=== PATIENT | male | born 1985 | race Caucasian/White ===

== ENCOUNTER 2018-07-20 12:21 | Emergency (ER) | payer OTHER ==
--- NOTE | 2018-07-20 12:52 | EDM.PDOC ---
ED HPI GENERAL MEDICAL PROBLEM - General Chief Complaint: Cardiovascular Problem Stated Complaint: HEART RACING WITH WALKING Time Seen by Provider: 07/20/18 12:45 Source of Information: Reports: Patient History Limitations: Reports: No Limitations - History of Present Illness INITIAL COMMENTS - FREE TEXT/NARRATIVE: This 32 yo male patient reports to the ED due to feeling like his heart was racing this morning while he was walking around the house. The patient reports he has not noticed any symptoms prior to today. The patient reports he has been under increased stress due to him breaking up with his girlfriend and trying to sell the house. The patient also reports he had a filling fall out of his right upper tooth about 1 year ago, but the patient has not had any problems with this other than intermittent pain when chewing something hard. Onset: Today Duration: Constant Location: Reports: Chest Quality: Reports: Other Severity: Moderate Improves with: Reports: Rest Worsens with: Reports: Movement Context: Reports: Other Associated Symptoms: Reports: No Other Symptoms - Related Data Allergies Allergy/AdvReac Type Severity Reaction Status Date / Time No Known Allergies Allergy Verified 07/20/18 12:27 Home Meds: Home Meds . [No Known Home Meds] 07/20/18 [History] Past Medical History - Infectious Disease History Infectious Disease History: Reports: Chicken Pox - Past Surgical History GI Surgical History: Reports: Hernia Repair/Other Social & Family History - Tobacco Use Smoking Status *Q: Never Smoker Second Hand Smoke Exposure: No - Recreational Drug Use Recreational Drug Use: No ED ROS GENERAL - Review of Systems Review Of Systems: ROS reveals no pertinent complaints other than HPI. ED EXAM, GENERAL - Physical Exam Exam: See Below Exam Limited By: No Limitations General Appearance: Alert, WD/WN, Mild Distress Eye Exam: Bilateral Eye: EOMI, Normal Inspection, PERRL Ears: Normal External Exam, Normal Canal, Hearing Grossly Normal, Normal TMs Nose: Normal Inspection, Normal Mucosa, No Blood Throat/Mouth: Normal Inspection, Normal Lips, Normal Teeth, Normal Gums, Normal Oropharynx, Normal Voice, No Airway Compromise Head: Atraumatic, Normocephalic Neck: Normal Inspection, Supple, Non-Tender, Full Range of Motion Respiratory/Chest: No Respiratory Distress, Lungs Clear, Normal Breath Sounds, No Accessory Muscle Use, Chest Non-Tender Cardiovascular: No Edema, No Gallop, No JVD, No Murmur, No Rub, Irregularly Irregular GI/Abdominal: Normal Bowel Sounds, Soft, Non-Tender, No Organomegaly, No Distention, No Abnormal Bruit, No Mass (Male) Exam: Deferred Rectal (Males) Exam: Deferred Back Exam: Normal Inspection, Full Range of Motion, NT Extremities: Normal Inspection, Normal Range of Motion, Non-Tender, Normal Capillary Refill, No Pedal Edema Neurological: Alert, Oriented, CN II-XII Intact, Normal Cognition, Normal Gait, Normal Reflexes, No Motor/Sensory Deficits Psychiatric: Normal Affect, Normal Mood Skin Exam: Warm, Dry, Intact, Normal Color, No Rash Lymphatic: No Adenopathy Course - Vital Signs Last Recorded V/S: Last Vital Signs Temp 36.3 C 07/20/18 12:23 Pulse 83 07/20/18 12:23 Resp 21 H 07/20/18 12:23 BP 152/126 H 07/20/18 12:23 Pulse Ox 100 07/20/18 12:23 - Orders/Labs/Meds Orders: Active Orders 24 hr Category Date Time Status EKG Documentation Completion [RC] URGENT Care 07/20/18 12:30 Ordered Labs: Laboratory Tests 07/20/18 07/20/18 Range/Units 12:38 12:38 WBC 8.0 (5.0-10.0) 10^3/uL RBC 5.85 (4.6-6.2) 10^6/uL Hgb 17.0 (14.0-18.0) g/dL Hct 48.5 (40.0-54.0) % MCV 82.9 (80-100) fL MCH 29.1 (27.0-34.0) pg MCHC 35.1 H (33.0-35.0) g/dL Plt Count 217 (150-450) 10^3/uL Neut % (Auto) 69.0 (42.2-75.2) % Lymph % (Auto) 20.4 L (20.5-50.1) % [place] % (Auto) 8.9 H (2-8) % Eos % (Auto) 1.5 (1.0-3.0) % Baso % (Auto) 0.2 (0.0-1.0) % Sodium 136 (135-145) mmol/L Potassium 3.9 (3.6-5.0) mmol/L Chloride 100 L (101-111) mmol/L Carbon Dioxide 24.0 (21.0-31.0) mmol/L Anion Gap 15.9 BUN 13 (7-18) mg/dL Creatinine 1.0 (0.6-1.3) mg/dL Est Cr Clr Drug Dosing TNP Estimated GFR (MDRD) > 60 BUN/Creatinine Ratio 13.00 Glucose 98 (74-105) mg/dL Calcium 10.2 (8.4-10.2) mg/dl Total Bilirubin 1.0 (0.2-1.0) mg/dL AST 23 (10-42) IU/L ALT 38 (10-60) IU/L Alkaline Phosphatase 70 (42-121) IU/L Troponin I 0.04 H* (0.00-0.02) ng/ml Total Protein 8.0 (6.7-8.2) g/dl Albumin 4.7 (3.2-5.5) g/dl Globulin 3.3 Albumin/Globulin Ratio 1.42 Meds: Medications Discontinued Medications Generic Name Dose Route Start Last Admin Trade Name Freq PRN Reason Stop Dose Admin Aspirin 324 mg 07/20/18 13:15 07/20/18 13:20 Aspirin PO 07/20/18 13:16 324 mg ONETIME ONE Administration Departure - Departure Time of Disposition: 13:24 Disposition: DC/Tfer to Acute Hospital 02 Reason for Transfer *Q: Other Condition: Fair Clinical Impression: New onset a-fib, Elevated troponin I level Forms: Interfacility Transfer EMTALA Care Plan Goals: Discussed the patient's history, examination, lab and EKG with Dr. Peñaloza. Dr. Peñaloza accepted the patient for continued evaluation and further management at [facility] in [place]. The patient will be transported by [facility]. - My Orders Last 24 Hours: My Active Orders 07/20/18 12:30 EKG Documentation Completion [RC] URGENT - Assessment/Plan Last 24 Hours: My Active Orders 07/20/18 12:30 EKG Documentation Completion [RC] URGENT
[2018-07-20 13:06] LABS: ANION GAP 15.9; CHLORIDE,CL 100 mmol/L (101-111); SODIUM,NA 136 mmol/L (135-145)
[2018-07-20] MEDS ORDERED: Aspirin 81 MG Tab.Chew PO ONE (13:15)
== END 2018-07-20 14:00 ==
LOC: DL.ED 12:21
DX: I48.91 Unspecified atrial fibrillation (principal); R79.89 Other specified abnormal findings of blood chemistry
CPT/HCPCS: 36415; 80053; 84484; 85025; 93005; 99285; A9270

== ENCOUNTER 2019-12-20 12:02 | Emergency (ER) | payer BC, OTHER ==
[2019-12-20] MEDS ORDERED: Sodium Chloride 0.9% 10 ML Syringe FLUSH PRN (12:16)
--- NOTE | 2019-12-20 12:16 | EDM.PDOC ---
ED HPI GENERAL MEDICAL PROBLEM - General Chief Complaint: Chest Pain Stated Complaint: ER Time Seen by Provider: 12/20/19 12:16 Source of Information: Reports: Patient, Old Records, Provider (Clif Serra NP), RN, RN Notes Reviewed History Limitations: Reports: No Limitations - History of Present Illness INITIAL COMMENTS - FREE TEXT/NARRATIVE: Pt sent from clinic by Clif Serra NP with report of recurrent chest pain/pressure x1 week associated with shortness of breath. Pt was found in clinic today to have no acute EKG changes, but had an equivocal Troponin of 0.08 (0.0-0.07 ref. range). Pt currently pain and symptom free. He has Hx of paroxysmal A-fib and cardiomyopathy followed by Dr. Paz. Pt takes Metoprolol 25mg BID, and Eliquis 5mg BID. Pt states the pain comes and goes randomly, and is not necessarily exertional. 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, Other Medication(s) - Related Data Allergies Allergy/AdvReac Type Severity Reaction Status Date / Time No Known Allergies Allergy Verified 12/20/19 12:43 Home Meds: Home Meds Apixaban [Eliquis] 5 mg PO BID 12/20/19 [History] Metoprolol Tartrate 25 mg PO BID 12/20/19 [History] Past Medical History Cardiovascular History: Reports: Afib, Cardiomyopathy Endocrine/Metabolic History: Reports: Obesity/BMI 30+ - Infectious Disease History Infectious Disease History: Reports: Chicken Pox - Past Surgical History GI Surgical History: Reports: Hernia Repair/Other Social & Family History - Family History Family Medical History: Noncontributory - Tobacco Use Smoking Status *Q: Never Smoker - Alcohol Use Alcohol Use History: Yes Alcohol Use Frequency: Socially - Recreational Drug Use Recreational Drug Use: No - Living Situation & Occupation Living situation: Reports: with Family Occupation: Employed ED ROS GENERAL - Review of Systems Review Of Systems: Comprehensive ROS is negative, except as noted in HPI. ED EXAM, GENERAL - Physical Exam Exam: See Below Exam Limited By: No Limitations General Appearance: Alert, WD/WN, No Apparent Distress Nose: Normal Inspection Throat/Mouth: Normal Inspection Head: Atraumatic, Normocephalic Neck: Normal Inspection Respiratory/Chest: No Respiratory Distress, Lungs Clear, Normal Breath Sounds, No Accessory Muscle Use, Chest Non-Tender Cardiovascular: Normal Peripheral Pulses, Regular Rate, Rhythm, No Edema, No JVD GI/Abdominal: Normal Bowel Sounds, Soft, Non-Tender Back Exam: Normal Inspection Extremities: Normal Inspection, Normal Range of Motion, Non-Tender, Normal Capillary Refill, No Pedal Edema Neurological: Alert, Oriented, CN II-XII Intact, Normal Cognition, Normal Gait, No Motor/Sensory Deficits Psychiatric: Normal Affect, Normal Mood Skin Exam: Warm, Dry, Intact, Normal Color, No Rash EKG INTERPRETATION EKG Date: 12/20/19 Time: 12:07 Rhythm: Other (SR) Rate (Beats/Min): 68 Boyce: LAD-Left Boyce Deviation P-Wave: Present QRS: Other (LVH, PVCs) ST-T: Depressed (lateral T wave inversion) QT: Normal Comparison: NA - No Prior EKG EKG Interpretation Comments: 1601HR EKG: SR, Rate 79, PVCs, unchanged from prior. Course - Vital Signs Last Recorded V/S: Last Vital Signs Temp 98.2 F 12/20/19 12:06 Pulse 63 12/20/19 12:06 Resp 20 12/20/19 12:06 BP 122/71 12/20/19 12:06 Pulse Ox 99 12/20/19 12:06 - Orders/Labs/Meds Orders: Active Orders 24 hr Category Date Time Status EKG 12 Lead [EKG Documentation Completion] [RC] STAT Care 12/20/19 12:17 Active EKG Documentation Completion [RC] ROUTINE Care 12/20/19 16:00 Active Peripheral IV Care [RC] . DIRECTED Care 12/20/19 12:17 Active Sodium Chloride 0.9% [Saline Flush] Med 12/20/19 12:16 Active 10 ml FLUSH ASDIRECTED PRN Peripheral IV Insertion Adult [OM.PC] Stat Oth 12/20/19 12:17 Ordered Medication Orders Sodium Chloride (Saline Flush) 10 ml FLUSH ASDIRECTED PRN PRN Reason: Keep Vein Open Last Admin: 12/20/19 12:24 Dose: 10 ml Documented by: MATTHEW Labs: Laboratory Tests 06/30/20 06/30/20 06/30/20 Range/Units 12:24 12:24 12:24 WBC 6.3 (5.0-10.0) 10^3/uL RBC 5.21 (4.6-6.2) 10^6/uL Hgb 15.2 D (14.0-18.0) g/dL Hct 43.8 (40.0-54.0) % MCV 84.1 (80-100) fL MCH 29.2 (27.0-34.0) pg MCHC 34.7 (33.0-35.0) g/dL Plt Count 180 (150-450) 10^3/uL Neut % (Auto) 70.1 (42.2-75.2) % Lymph % (Auto) 18.3 L (20.5-50.1) % [place] % (Auto) 8.6 H (2-8) % Eos % (Auto) 2.7 (1.0-3.0) % Baso % (Auto) 0.3 (0.0-1.0) % PT 10.8 (9.0-12.0) SEC INR 1.1 (0.9-1.2) APTT 28.8 (22.0-34.0) SEC D-Dimer, Quantitative < 100 (0-400) ng/mL Sodium 137 (136-145) mmol/L Potassium 4.2 (3.5-5.1) mmol/L Chloride 102 (98-107) mmol/L Carbon Dioxide 29 (21-32) mmol/L Anion Gap 10.2 (7-13) mEq/L BUN 8 (7-18) mg/dL Creatinine 0.92 (0.70-1.30) mg/dL Est Cr Clr Drug Dosing 134.02 mL/min Estimated GFR (MDRD) > 60 BUN/Creatinine Ratio 8.7 (No establ ref range) Glucose 99 (74-99) mg/dL Calcium 9.6 (8.5-10.1) mg/dL Total Bilirubin 0.5 (0.2-1.0) mg/dL AST 29 (15-37) U/L ALT 66 H (16-63) U/L Alkaline Phosphatase 79 (46-116) U/L Troponin I 0.042 (0.000-0.056) ng/mL B-Natriuretic Peptide 57 (0-100) pg/ml Total Protein 7.5 (6.4-8.2) g/dL Albumin 4.0 (3.4-5.0) g/dL Globulin 3.5 Albumin/Globulin Ratio 1.1 06/30/20 Range/Units 15:58 WBC (5.0-10.0) 10^3/uL RBC (4.6-6.2) 10^6/uL Hgb (14.0-18.0) g/dL Hct (40.0-54.0) % MCV (80-100) fL MCH (27.0-34.0) pg MCHC (33.0-35.0) g/dL Plt Count (150-450) 10^3/uL Neut % (Auto) (42.2-75.2) % Lymph % (Auto) (20.5-50.1) % [place] % (Auto) (2-8) % Eos % (Auto) (1.0-3.0) % Baso % (Auto) (0.0-1.0) % PT (9.0-12.0) SEC INR (0.9-1.2) APTT (22.0-34.0) SEC D-Dimer, Quantitative (0-400) ng/mL Sodium (136-145) mmol/L Potassium (3.5-5.1) mmol/L Chloride (98-107) mmol/L Carbon Dioxide (21-32) mmol/L Anion Gap (7-13) mEq/L BUN (7-18) mg/dL Creatinine (0.70-1.30) mg/dL Est Cr Clr Drug Dosing mL/min Estimated GFR (MDRD) BUN/Creatinine Ratio (No establ ref range) Glucose (74-99) mg/dL Calcium (8.5-10.1) mg/dL Total Bilirubin (0.2-1.0) mg/dL AST (15-37) U/L ALT (16-63) U/L Alkaline Phosphatase (46-116) U/L Troponin I 0.040 (0.000-0.056) ng/mL B-Natriuretic Peptide (0-100) pg/ml Total Protein (6.4-8.2) g/dL Albumin (3.4-5.0) g/dL Globulin Albumin/Globulin Ratio Meds: Medications Generic Name Dose Route Start Last Admin Trade Name Malcolmq PRN Reason Stop Dose Admin Sodium Chloride 10 ml 12/20/19 12:16 12/20/19 12:24 Saline Flush FLUSH 10 ml ASDIRECTED PRN Administration Keep Vein Open Discontinued Medications Generic Name Dose Route Start Last Admin Trade Name Faisal PRN Reason Stop Dose Admin Aspirin 324 mg 12/20/19 12:23 12/20/19 12:40 Aspirin PO 12/20/19 12:24 324 mg ONETIME ONE Administration Departure - Departure Time of Disposition: 16:26 Disposition: Home, Self-Care 01 Condition: Good Clinical Impression: Atypical chest pain Forms: ED Department Discharge Additional Instructions: Your cardiac enzymes were normal. Call Dr. Paz's clinic tomorrow to set up an appointment for further chest pain evaluation. Return to ER if chest pain returns or becomes severe. Sepsis Event Note (ED) - Evaluation Sepsis Screening Result: No Definite Risk - Focused Exam Vital Signs: Vital Signs Temp Pulse Resp BP Pulse Ox 12/20/19 12:06 98.2 F 63 20 122/71 99 - My Orders Last 24 Hours: My Active Orders 12/20/19 12:16 Sodium Chloride 0.9% [Saline Flush] 10 ml FLUSH ASDIRECTED PRN 12/20/19 12:17 EKG 12 Lead [EKG Documentation Completion] [RC] STAT Peripheral IV Care [RC] . DIRECTED Peripheral IV Insertion Adult [OM.PC] Stat 12/20/19 16:00 EKG Documentation Completion [RC] ROUTINE - Assessment/Plan Last 24 Hours: My Active Orders 12/20/19 12:16 Sodium Chloride 0.9% [Saline Flush] 10 ml FLUSH ASDIRECTED PRN 12/20/19 12:17 EKG 12 Lead [EKG Documentation Completion] [RC] STAT Peripheral IV Care [RC] . DIRECTED Peripheral IV Insertion Adult [OM.PC] Stat 12/20/19 16:00 EKG Documentation Completion [RC] ROUTINE
[2019-12-20] MEDS ORDERED: Aspirin 81 MG Tab.Chew PO ONE (12:23)
[2019-12-20 12:49] LABS: PTT,PARTIAL THROMBOPLSTIN TIME 28.8 SEC (22.0-34.0)
[2019-12-20 12:56] LABS: ANION GAP 10.2 mEq/L (7-13); CHLORIDE,CL 102 mmol/L (98-107); SODIUM,NA 137 mmol/L (136-145)
--- NOTE | 2019-12-20 14:03 | CR ---
EXAMINATION: Chest 1V Frontal SEX: Male AGE: 34 years CLINICAL HISTORY: 34-year-old male with chest pain. No comparison exams. Interpretation: Reasonable inspiratory effort obese male (external playground monitor leads). Upright AP chest. Normal cardiac silhouette and pulmonary vascularity. No pulmonary vascular congestion, cephalization of flow, alveolar edema or dependent pleural effusion. No lung mass, hilar lymphadenopathy or focal lobar pneumonia. No pneumothorax or pneumomediastinum. Midline tracheal bronchial airway unremarkable. No atelectasis/collapse. CONCLUSION: No cardiopulmonary abnormality.
== END 2019-12-20 17:00 | disposition home or self-care (01) ==
LOC: DL.ED 12:02
DX: R07.89 Other chest pain (principal); I48.91 Unspecified atrial fibrillation; E66.9 Obesity, unspecified; Z68.38 Body mass index [BMI] 38.0-38.9, adult; Z79.01 Long term (current) use of anticoagulants; Z79.899 Other long term (current) drug therapy
CPT/HCPCS: 36415; 71045; 80053; 83880; 84484; 85025; 85379; 85610; 85730; 93005; 99285; A9270

== ENCOUNTER 2020-08-12 14:29 | Emergency (ER) | payer BC ==
[2020-08-12 15:17] LABS: ANION GAP 13.8 mEq/L (7-13); CHLORIDE,CL 98 mmol/L (98-107); SODIUM,NA 135 mmol/L (136-145)
--- NOTE | 2020-08-12 15:18 | EDM.PDOC ---
ED HPI GENERAL MEDICAL PROBLEM - General Chief Complaint: Abdominal Pain Stated Complaint: ABDOMINAL PAIN Time Seen by Provider: 08/12/20 14:50 Source of Information: Reports: Patient History Limitations: Reports: No Limitations - History of Present Illness INITIAL COMMENTS - FREE TEXT/NARRATIVE: This 34 yo male patient reports to the ED due to increased upper abdominal pain. The patient reports his symptoms started yesterday and were intermittent. Today, the patient reports his pain has been consistent. The patient attempted to take Tums yesterday with no changes in symptoms. The patient reports a history of acid reflux, but does not recall eating anything that would have increased symptoms. Onset Date: 08/11/20 Duration: Constant, Getting Worse Location: Reports: Abdomen (upper abdomen) Quality: Reports: Ache Severity: Moderate Improves with: Reports: None Worsens with: Reports: None Context: Reports: Other Associated Symptoms: Reports: Other Chest Pain Score (Numeric/FACES): 5 - Related Data Allergies Allergy/AdvReac Type Severity Reaction Status Date / Time No Known Allergies Allergy Verified 08/12/20 14:45 Home Meds: Home Meds Apixaban [Eliquis] 5 mg PO BID 12/20/19 [History] Metoprolol Tartrate 25 mg PO BID 12/20/19 [History] Past Medical History HEENT History: Reports: None Cardiovascular History: Reports: Afib, Cardiomyopathy Respiratory History: Reports: None Gastrointestinal History: Reports: None Genitourinary History: Reports: None Musculoskeletal History: Reports: None Neurological History: Reports: None Psychiatric History: Reports: None Endocrine/Metabolic History: Reports: Obesity/BMI 30+ Hematologic History: Reports: None Immunologic History: Reports: None Oncologic (Cancer) History: Reports: None Dermatologic History: Reports: None - Infectious Disease History Infectious Disease History: Reports: Chicken Pox - Past Surgical History GI Surgical History: Reports: Hernia Repair/Other Social & Family History - Family History Family Medical History: No Pertinent Family History - Tobacco Use Tobacco Use Status *Q: Never Tobacco User - Caffeine Use Caffeine Use: Reports: None, Soda - Recreational Drug Use Recreational Drug Use: No - Living Situation & Occupation Living situation: Reports: with Family Occupation: Employed ED ROS GENERAL - Review of Systems Review Of Systems: Comprehensive ROS is negative, except as noted in HPI. ED EXAM, GI/ABD - Physical Exam Exam: See Below Exam Limited By: No Limitations General Appearance: Alert, WD/WN, Moderate Distress Eyes: Bilateral: Normal Appearance, EOMI Ears: Normal External Exam, Normal Canal, Hearing Grossly Normal, Normal TMs Nose: Normal Inspection, Normal Mucosa, No Blood Throat/Mouth: Normal Inspection, Normal Lips, Normal Teeth, Normal Gums, Normal Oropharynx, Normal Voice, No Airway Compromise Head: Atraumatic, Normocephalic Neck: Normal Inspection, Supple, Non-Tender, Full Range of Motion Respiratory/Chest: No Respiratory Distress, Lungs Clear, Normal Breath Sounds, No Accessory Muscle Use, Chest Non-Tender Cardiovascular: Normal Peripheral Pulses, Regular Rate, Rhythm, No Edema, No Gallop, No JVD, No Murmur, No Rub GI/Abdominal Exam: Tender (epigastric area with diffuse tenderness throughout the abdomen) (Male) Exam: Deferred Rectal (Males) Exam: Deferred Back Exam: Normal Inspection, Full Range of Motion, NT Extremities: Normal Inspection, Normal Range of Motion, Non-Tender, Normal Capillary Refill, No Pedal Edema Neurological: Alert, Oriented, CN II-XII Intact, Normal Cognition, Normal Gait, Normal Reflexes, No Motor/Sensory Deficits Psychiatric: Normal Affect, Normal Mood Skin Exam: Warm, Dry, Intact, Normal Color, No Rash Lymphatic: No Adenopathy Course - Vital Signs Last Recorded V/S: Last Vital Signs Temp 36.3 C 08/12/20 14:42 Pulse 72 08/12/20 14:42 Resp 14 08/12/20 14:42 BP 179/95 H 08/12/20 14:42 Pulse Ox 100 08/12/20 14:42 - Orders/Labs/Meds Orders: Active Orders 24 hr Category Date Time Status EKG Documentation Completion [RC] STAT Care 08/12/20 14:40 Active Labs: Laboratory Tests 08/12/20 08/12/20 08/12/20 Range/Units 14:33 14:49 14:49 WBC 7.8 (5.0-10.0) 10^3/uL RBC 4.99 (4.6-6.2) 10^6/uL Hgb 15.4 (14.0-18.0) g/dL Hct 42.3 (40.0-54.0) % MCV 84.8 (80-100) fL MCH 30.9 (27.0-34.0) pg MCHC 36.4 H (33.0-35.0) g/dL Plt Count 193 (150-450) 10^3/uL Neut % (Auto) 70.0 (42.2-75.2) % Lymph % (Auto) 19.0 L (20.5-50.1) % [place] % (Auto) 8.7 H (2-8) % Eos % (Auto) 1.9 (1.0-3.0) % Baso % (Auto) 0.4 (0.0-1.0) % Sodium 135 L (136-145) mmol/L Potassium 3.8 (3.5-5.1) mmol/L Chloride 98 (98-107) mmol/L Carbon Dioxide 27 (21-32) mmol/L Anion Gap 13.8 H (7-13) mEq/L BUN 11 (7-18) mg/dL Creatinine 1.03 (0.70-1.30) mg/dL Est Cr Clr Drug Dosing 119.71 mL/min Estimated GFR (MDRD) > 60 BUN/Creatinine Ratio 10.7 (No establ ref range) Glucose 98 (74-99) mg/dL Calcium 9.3 (8.5-10.1) mg/dL Total Bilirubin 0.5 (0.2-1.0) mg/dL AST 16 (15-37) U/L ALT 58 (16-63) U/L Alkaline Phosphatase 68 (46-116) U/L Troponin I 0.056 (0.000-0.056) ng/mL Total Protein 7.5 (6.4-8.2) g/dL Albumin 3.8 (3.4-5.0) g/dL Globulin 3.7 Albumin/Globulin Ratio 1.0 Urine Color Yellow (YELLOW) Urine Appearance Clear (CLEAR) Urine pH 6.5 (5.0-9.0) Ur Specific [place] 1.010 (1.005-1.030) Urine Protein Negative (NEGATIVE) Urine Glucose (UA) Negative (NEGATIVE) Urine Ketones Negative (NEGATIVE) Urine Occult Blood Negative (NEGATIVE) Urine Nitrite Negative (NEGATIVE) Urine Bilirubin Negative (NEGATIVE) Urine Urobilinogen 0.2 (0.2-1.0) mg/dL Ur Leukocyte Esterase Negative (NEGATIVE) Meds: Medications Discontinued Medications Generic Name Dose Route Start Last Admin Trade Name Freq PRN Reason Stop Dose Admin Al Hydroxide/Mg Hydroxide 30 ml 08/12/20 17:08 Gi Cocktail PO 08/12/20 17:09 ONETIME ONE Iopamidol 100 ml 08/12/20 15:39 08/12/20 16:07 Isovue-300 (61%) IVPUSH 08/12/20 15:40 100 ml ONETIME ONE Administration Omeprazole 20 mg 08/12/20 17:08 Omeprazole PO 08/12/20 17:09 ONETIME ONE Departure - Departure Time of Disposition: 17:11 Disposition: Home, Self-Care 01 Condition: Fair Clinical Impression: Hiatal hernia GERD (gastroesophageal reflux disease) Qualifiers: Esophagitis presence: esophagitis presence not specified Qualified Code(s): K21.9 - Gastro-esophageal reflux disease without esophagitis - Discharge Information *PRESCRIPTION DRUG MONITORING PROGRAM REVIEWED*: Not Applicable *COPY OF PRESCRIPTION DRUG MONITORING REPORT IN PATIENT ANI: Not Applicable Instructions: Gastroesophageal Reflux Disease, Adult, [id number] Forms: ED Department Discharge Care Plan Goals: The patient was advised of the examination, lab, EKG and CT results during the visit. The patient was given a GI cocktail and an oral dose of Omeprazole while in the ED. The patient was discharged with a script for Omeprazole (20 mg) #40 to take 1 by mouth 2 times per day for 7 days, then 1 time per day until gone. If the patient has any additional symptoms or concerns, the patient should either return to the emergency department or visit his primary care facility. Sepsis Event Note (ED) - Evaluation Sepsis Screening Result: No Definite Risk - Focused Exam Vital Signs: Vital Signs Temp Pulse Resp BP Pulse Ox 08/12/20 14:42 36.3 C 72 14 179/95 H 100 - My Orders Last 24 Hours: My Active Orders 08/12/20 14:40 EKG Documentation Completion [RC] STAT - Assessment/Plan Last 24 Hours: My Active Orders 08/12/20 14:40 EKG Documentation Completion [RC] STAT
[2020-08-12] MEDS ORDERED: Iopamidol 612 MG/ML 100 ML Bottle IVPUSH ONE (15:39)
--- NOTE | 2020-08-12 16:52 | CT ---
PROCEDURE INFORMATION: Exam: CT Abdomen And Pelvis With Contrast Exam date and time: 08/12/2020 3:57 PM Age: 34 years old Clinical indication: Other: Upper abd pain; Additional info: Upper abdominal pain TECHNIQUE: Imaging protocol: Computed tomography of the abdomen and pelvis with contrast. Radiation optimization: All CT scans at this facility use at least one of these dose optimization techniques: automated exposure control; mA and/or kV adjustment per patient size (includes targeted exams where dose is matched to clinical indication); or iterative reconstruction. Contrast material: [id number]; Contrast volume: 100 ml; Contrast route: INTRAVENOUS (IV); COMPARISON: No relevant prior studies available. FINDINGS: Lungs: There is subpleural atelectasis of the dependent portions of the lungs. Lung bases are clear. Liver: There is moderate enlargement of the liver. There is a diffuse decrease in hepatic parenchymal density, consistent with fatty infiltration. A small hiatal hernia is present. Gallbladder and bile ducts: Normal. No calcified stones. No ductal dilation. Pancreas: Normal. No ductal dilation. Spleen: Normal. No splenomegaly. Adrenal glands: Normal. No mass. Kidneys and ureters: Normal. No hydronephrosis. Stomach and bowel: No bowel wall thickening, obstruction, or other acute pathology. Diffuse colonic diverticulosis is present. There is mildly excessive colonic stool content. Appendix: No evidence of appendicitis. Intraperitoneal space: Unremarkable. No free air. No significant fluid collection. Vasculature: Unremarkable. No abdominal aortic aneurysm. Lymph nodes: Unremarkable. No enlarged lymph nodes. Urinary bladder: Unremarkable as visualized. Reproductive: Unremarkable as visualized. Bones/joints: There is a prominent posterior disc bulge at L4-L5, causing mild central canal stenosis and mild bilateral neural foraminal stenosis. No acute skeletal abnormality or aggressive osseous lesion. Soft tissues: Unremarkable. IMPRESSION: 1. Negative for acute abdominopelvic pathology. 2. Incidental findings as detailed above.
[2020-08-12] MEDS ORDERED: GI Cocktail Oral Solution 30 ML PO ONE (17:08)
[2020-08-12] MEDS ORDERED: Omeprazole 20 MG Cap.CR PO ONE (17:08)
== END 2020-08-12 17:30 | disposition home or self-care (01) ==
LOC: DL.ED 14:29
DX: K21.9 Gastro-esophageal reflux disease without esophagitis (principal); K44.9 Diaphragmatic hernia without obstruction or gangrene; I48.91 Unspecified atrial fibrillation; E66.9 Obesity, unspecified; Z68.39 Body mass index [BMI] 39.0-39.9, adult; Z79.01 Long term (current) use of anticoagulants; Z79.899 Other long term (current) drug therapy
CPT/HCPCS: 36415; 74177; 80053; 81003; 84484; 85025; 93005; 99285; A9270; Q9967; 93010; 99284

== ENCOUNTER 2020-09-13 07:26 | Day surgery (SDC) | payer BC ==
[~2020-09-13 07:26] MED LIST: Dextrose 5%-0.45% NaCl 1,000 ML IV SCH; Midazolam 1 MG/ML 2 ML SDV ONE; fentaNYL 100 MCG/2 ML SDV ONE
[2020-09-13] MEDS ORDERED: fentaNYL 100 MCG/2 ML SDV IV ONE ×3 (07:27→08:49)
[2020-09-13] MEDS ORDERED: Midazolam 1 MG/ML 2 ML SDV IV ONE ×3 (07:27→08:50)
--- NOTE | 2020-09-13 15:23 | OR ---
DATE: 09/13/2020 PROCEDURE: Esophagogastroduodenoscopy and multiple pinch biopsies. INSTRUMENT USED: [id number]-HQ190 Olympus video panendoscope. PREMEDICATIONS: No oral or topical anesthesia used. Fentanyl 100 mcg intravenous, Versed 2 mg intravenous. Nasal O2 cannula. The procedure was done under pulse oximetry, BP recording, and electronic device monitor. INDICATION: The patient with long-standing heartburn, unexplained, not responsive to medical measures, on PPI. Esophagogastroduodenoscopy is performed for detection of any active erosive lesions, Payne esophagus, and/or malignancy also under consideration, H pylori status to be determined, endoscopic hemostasis therapy if needed. DESCRIPTION OF PROCEDURE: The scope was passed with ease. Adequate visualization of the esophagus was made from proximal to distal areas. No upper esophageal lesions identified. No distal esophageal stricture. No uphill or downhill esophageal varices. No Naomie-Lee tear. No evidence of erosive esophagitis by [place] criteria. No esophageal polyp or tumor mass identified. Z-line was seen at around 40 cm distal to the oral verge. No proximal gastric varices noted. Gastric fundus examination by retroflexion showed no polypoid lesions. No gastric ulcer, malignant mass, or vascular ectasia identified. Duodenal bulb showed no ulcer. Visualized 2nd part of the duodenum was unremarkable. Multiple pinch biopsies were obtained from the gastric antrum and proximal body and sent for PyloriTek test for H pylori, and if negative in an hour, tissues to be sent for histopathology. No bleeding was noted from any of the visualized areas at the completion of examination. Photographs were taken of the duodenal bulb, gastric antrum, fundus, and distal esophagus. IMPRESSION: Normal study. The patient tolerated the procedure well. [facility] /[id number]
== END 2020-09-13 11:00 | disposition home or self-care (01) ==
LOC: DL.ENDO 07:26
PROVIDERS: ATTEND Internal Medicine Gastroenterology
DX: K29.50 Unspecified chronic gastritis without bleeding (principal); E66.09 Other obesity due to excess calories; Z68.39 Body mass index [BMI] 39.0-39.9, adult; I48.91 Unspecified atrial fibrillation
CPT/HCPCS: 43239; 87077; J2250; J3010; J7042